=== PATIENT | female | born 1955 | race Caucasian/White ===

== ENCOUNTER 2023-11-26 18:01 | Emergency (ER) | payer MEDICARE, OTHER, SELFPAY ==
[2023-11-26 18:08] VITALS: BP 119/81
[2023-11-26 18:31] LABS: % Basophils 0.7 % (0-2); % Eosinophils 1.9 % (0-6); % Immature Granulocytes 0.3 % (0-0.5); % Lymphocytes 34.5 % (20.5-51.1); % Neutrophils 55.6 % (42.2-75.2); Absolute Basophils 0.1 10^3/uL (0-0.2); Absolute Eosinophils 0.1 10^3/uL (0-0.7); Absolute Lymphocytes 2.6 10^3/uL (1.2-3.4); Absolute Monocytes 0.5 10^3/uL (0.1-0.6); Absolute Neutrophils 4.2 10^3/uL (1.4-6.5); Hematocrit 41.5 % (37.0-47.0); Hemoglobin 15.1 g/dL (12.0-16.0); Mean Corp Hgb Conc. 36.4 g/dL (33.0-37.0); Mean Corpuscular Hgb 33.6 pg (27.0-31.0); Mean Corpuscular Volume 92.2 fL (81.0-99.0); Mean Platelet Volume 8.7 fL (7.4-10.4); Nucleated Red Blood Cells % 0 %; Platelet Count 275 10^3/uL (130-400); Red Cell Dist. Width 11.6 % (11.5-14.5); White Blood Cell Count 7.5 10^3/uL (4.8-10.8)
[2023-11-26 18:51] LABS: ALT (SGPT) 46 U/L (0-35); AST (SGOT) 37 U/L (14-36); Albumin 4.1 g/dl (3.5-5.0); Alkaline Phosphatase 63 U/L (38-126); Blood Urea Nitrogen 16 mg/dl (7-17); Calcium 9.6 mg/dl (8.4-10.2); Carbon Dioxide 32 mmol/L (22-30); Chloride 96 mmol/L (98-107); Glucose 112 mg/dl (70-99); Potassium 3.1 mmol/L (3.5-5.1); Sodium 137 mmol/L (135-145); Total Bilirubin 0.5 mg/dl (0.2-1.3); Total Protein 7.7 g/dl (6.3-8.2); eGFR > 60.00
--- NOTE | 2023-11-26 19:00 | ED.GENMED ---
History of Present Illness
General
Chief Complaint: Musculo-Skeletal Complaint
Source: patient
Exam Limitations: none
Time Seen by Provider: 11/26/23 18:45
Nursing documentation reviewed up to this point in time: agreed with
Travel History
Have you had any contact with someone who has COVID-19?: No
Do you have any symptoms of coronavirus? Fever > 100 degrees, chills, cough, shortness of breath, sore throat, loss of taste or smell, muscle aches, or headache?: No
History of Present Illness
History of Present Illness:
Patient presents to ED secondary to ongoing left leg pain over the past 4 days. Patient states that patient was given Zithromax by her primary care physician last week. After taking 1 tablet, but night, patient started to experience left shoulder,
left arm, left-sided neck, as well as left leg pain. Since then, left neck and shoulder pain have resolved. Denies direct trauma. Denies loss of sensation or weakness. Denies fever or chills. Of note, patient does have history of rheumatoid
arthritis and received scheduled Remicade infusion this afternoon.
Past History
Past History
ED Past Medical History: Asthma, Cancer (Skin CA), GERD, Psychiatric (Anxiety, Depression) and Other (Chronic neck/back pain, diverticulitis, migraines, pulmonary AVM, rheumatoid arthritis, PNA, C-diff, )
ED Past Surgical History: Appendectomy, Gynecological, Orthopedic (L4-L5 Laminectomy, Right Bunionectomy, L and R shoulder repair, L and R THR, Right knee surgery, Right hand surgery, ) and Other (Rhizotomy neck and back, Cataracts, Deviated septum,
Detached retina, ); Negative Cardiac
Social History
Tobacco: Former smoker
Alcohol: Occasional
Drug: None
Personal:
Living: with family
Employment: Employed
Family History
Family History: Hypertension
Review of Systems
Review of Systems
Allergies reviewed?: Yes
All Other Systems: ROS reviewed and negative except as documented in HPI and ROS
Constitutional: Reports no symptoms; Denies fever or chills
Musculoskeletal: Reports other (Arm and leg pain)
Skin: Reports no symptoms
Neurological: Reports no symptoms; Denies weakness or numbness
Phy Exam
Physical Exam
Physical Exam:
Physical Exam
General: no apparent distress, not acutely ill. afebrile
Head: nc/at. eomi
Neck: supple. normal range of motion
Abdomen: normal bowel sounds. not tender.
Neuro: alert and oriented. no focal neurological deficits. normal speech.
Skin: no rash
Psychiatric: well kept. interactive and cooperative
Extremities: no edema. no calf tenderness. normal range of motion
Course
Orders/Labs/Results
Orders:
Orders
11/26/23 18:12
CR Femur - Left Min 2 Vw Urgent
Comment:
Reason For Exam: pain
CR Hip - LT w/wo Pel 2-3 Vw* Urgent
Comment:
Reason For Exam: pain
Include a pelvis x-ray?: Yes
CR Knee - Left 4 Or More View* Urgent
Comment:
Reason For Exam: pain
CR Lumbar Spine 2 Or 3 Views Urgent
Reason For Exam: pain
11/26/23 18:19
C-Reactive Protein Urgent
Complete Blood Count/With Diff Urgent
Comprehensive Metabolic Panel Urgent
Abnormal Lab Results
11/26/23
18:19
MCH 33.6 H pg
(27.0-31.0)
Potassium 3.1 L mmol/L
(3.5-5.1)
Chloride 96 L mmol/L
(98-107)
Carbon Dioxide 32 H mmol/L
(22-30)
Glucose 112 H mg/dl
(70-99)
AST 37 H U/L
(14-36)
ALT 46 H U/L
(0-35)
C-Reactive Protein 27.40 H mg/L
(0.0-10.00)
11/26/23 18:19
11/26/23 18:19
Vital Signs
Initial and Last Documented VS:
Initial Vital Signs
Temp Pulse Resp BP Pulse Ox
98.3 F 82 18 119/81 96
11/26/23 18:08 11/26/23 18:08 11/26/23 18:08 11/26/23 18:08 11/26/23 18:08
Last Documented Vital Signs
Temp Pulse Resp BP Pulse Ox
98.3 F 82 18 119/81 96
11/26/23 18:08 11/26/23 18:08 11/26/23 18:08 11/26/23 18:08 11/26/23 18:08
MDM/Problems Addressed
MDM/Problems Addressed:
Patient with an unremarkable workup in ED, including blood work and x-rays. Patient feels comfortable going home at this time and will follow-up with her orthopedic surgeon as an outpatient.
*Critical Care Note
Total Time (30-74mins, 75-104mins- exclusive of procedures): Not Applicable
ED Attending Note
-
Portions of this chart may have been created with voice recognition software.� Occasional wrong word or��sound alike� substitutions may have occurred due to the inherent limitations of voice recognition software.
Discharge Plan
Departure
Patient Disposition: Home (Routine Discharge)
Date of Disposition: 11/26/23
Time of Disposition: 19:00
Patient with high blood pressure during this ER visit?: No
Discharge Problem:
Musculoskeletal pain
Instructions: Muscle and Bone Pain (DC)
Prescriptions:
No Action
alprazolam 1 MG tablet
1 - 2 mg PO PRN PRN (Reason: sleep/anxiety)
montelukast 10 MG tablet
10 mg PO QPM
fluoxetine 20 MG capsule
20 mg PO HS
docusate sodium 100 MG capsule
100 mg PO HS
sennosides [senna] 1 TABLET tablet
2 tab PO HS
pantoprazole [Protonix] 20 MG tablet,delayed release (DR/EC)
40 mg PO DAILY
Prolia 60 MG/ML syringe
60 mg SQ [id number]
hydrocodone-acetaminophen 10-325 mg Tablet
1 tab PO Q4H PRN (Reason: pain)
fluoxetine 10 mg Capsule
10 mg PO DAILY
potassium chloride 10 mEq Capsule, Extended Release
10 meq PO DAILY@1800
folic acid 1 mg Tablet
3 mg PO DAILY
famotidine 20 mg Tablet
20 mg PO HS
ondansetron 4 mg tablet,disintegrating
4 mg PO Q8H PRN (Reason: nausea and vomiting) Qty: 7 0RF
sucralfate [Carafate] 1 gram tablet
1 g PO ACHS Qty: 40 0RF
Rx Instructions:
30min to 1 hour before meals and HS
ciprofloxacin HCl [Cipro] 500 mg tablet
500 mg PO BID Qty: 10 0RF
Activity Restrictions/Additional Instructions:
As discussed, please follow-up with your primary care physician and/or orthopedic surgeon for further evaluation and treatment.
Interventions
Interventions:
*Risk Screen - Suicide Last Done: 11/26/23 18:08
*General Assessment Last Done: 11/26/23 18:08
*Neglect/Abuse Screening Last Done: 11/26/23 18:08
ED- Fall Risk Assessment Last Done: 11/26/23 19:20
*ED COVID-19 Vaccine History Last Done: 11/26/23 18:45
*Nursing Disposition Last Done: 11/26/23 19:20
ED-Musculoskeletal Assessment Last Done: 11/26/23 18:45
Discharge Date and Time
Discharge Date/Time: 11/26/23 19:21
== END 2023-11-26 19:21 | disposition home or self-care (01) ==
LOC: EMR 18:01
PROVIDERS: EMERGENCY PHYSICIAN Emergency Medicine; FAMILY PHYSICIAN Nurse Practitioner Family
DX: M79.18 Myalgia, other site (principal); J45.909 Unspecified asthma, uncomplicated; K21.9 Gastro-esophageal reflux disease without esophagitis; F41.9 Anxiety disorder, unspecified; F32.A Depression, unspecified; Q27.30 Arteriovenous malformation, site unspecified; M06.9 Rheumatoid arthritis, unspecified; Z82.49 Family history of ischemic heart disease and other diseases of the circulatory system; Z85.828 Personal history of other malignant neoplasm of skin; Z87.891 Personal history of nicotine dependence; Z90.49 Acquired absence of other specified parts of digestive tract
CPT/HCPCS: 99283; 72100; 73502; 73552; 73564; 80053; 85025; 86140

== ENCOUNTER → 2023-12-17 13:00 | Outpatient (REF) | payer MEDICARE, OTHER, SELFPAY ==
[2023-12-17 15:19] LABS: % Basophils 0.8 % (0-2); % Eosinophils 1.5 % (0-6); % Immature Granulocytes 0.3 % (0-0.5); % Lymphocytes 30.4 % (20.5-51.1); % Monocytes 11.5 % (1.7-9.3); % Neutrophils 55.5 % (42.2-75.2); Absolute Basophils 0.1 10^3/uL (0-0.2); Absolute Eosinophils 0.1 10^3/uL (0-0.7); Absolute Monocytes 0.8 10^3/uL (0.1-0.6); Absolute Neutrophils 3.6 10^3/uL (1.4-6.5); Hematocrit 41.2 % (37.0-47.0); Hemoglobin 14.4 g/dL (12.0-16.0); Mean Corpuscular Hgb 33.3 pg (27.0-31.0); Mean Corpuscular Volume 95.2 fL (81.0-99.0); Mean Platelet Volume 9.2 fL (7.4-10.4); Nucleated Red Blood Cells % 0 %; Platelet Count 226 10^3/uL (130-400); Red Blood Cell Count 4.33 10^6/uL (4.20-5.40); Red Cell Dist. Width 11.6 % (11.5-14.5); White Blood Cell Count 6.5 10^3/uL (4.8-10.8)
== END ==
LOC: HWLAB 13:00
PROVIDERS: ATTENDING PHYSICIAN Specialist
DX: Z01.812 Encounter for preprocedural laboratory examination (principal); K35.80 Unspecified acute appendicitis
CPT/HCPCS: 36415; 85025

== ENCOUNTER 2024-01-28 12:37 | Emergency (ER) | payer MEDICARE, OTHER, SELFPAY ==
[2024-01-28 12:42] VITALS: BP 132/86
--- NOTE | 2024-01-28 14:22 | ED.GENMED ---
History of Present Illness
General
Chief Complaint: Cold/Flu/URI Symptoms
Time Seen by Provider: 01/28/24 14:06
Travel History
Have you had any contact with someone who has COVID-19?: No
Do you have any symptoms of coronavirus? Fever > 100 degrees, chills, cough, shortness of breath, sore throat, loss of taste or smell, muscle aches, or headache?: No
History of Present Illness
History of Present Illness:
68-year-old female with history of rheumatoid arthritis on Remicade presents to the emergency department for evaluation of nasal congestion, coughing, chest tightness. She has had symptoms for the past 3 days. Tested positive for COVID-19 2 days
ago. She was prescribed Paxlovid by her primary care physician but her pharmacist advised her that there are interactions with her medications so she has not taken it. Denies any fevers today.
Past History
Past History
ED Past Medical History: Asthma, Cancer (Skin CA), GERD, Psychiatric (Anxiety, Depression) and Other (Chronic neck/back pain, diverticulitis, migraines, pulmonary AVM, rheumatoid arthritis, PNA, C-diff, )
ED Past Surgical History: Appendectomy, Gynecological, Orthopedic (L4-L5 Laminectomy, Right Bunionectomy, L and R shoulder repair, L and R THR, Right knee surgery, Right hand surgery, ) and Other (Rhizotomy neck and back, Cataracts, Deviated septum,
Detached retina, ); Negative Cardiac
Social History
Tobacco: Former smoker
Alcohol: Occasional
Drug: None
Personal:
Living: with family
Employment: Employed
Family History
Family History: Hypertension
Review of Systems
Review of Systems
Allergies reviewed?: Yes
All Other Systems: ROS reviewed and negative except as documented in HPI and ROS
Phy Exam
Physical Exam
Physical Exam:
GEN: Well appearing, NAD, WDWN
Eyes: PERRLA, EOMs intact, no scleral icterus
HENT: NCAT, oral mucosa moist
Lungs: CTAB, no wheezes, rales, rhonchi, normal chest wall excursion
Cardiac: RRR, no M/R/G, no peripheral edema. Radial pulses 2+ bilat
Neuro: AO x 3
MSK: No gross deformity or ecchymosis.
Skin: No rashes, petechiae. Normal color, no pallor or jaundice.
Psych: Calm, cooperative, proper hygiene
Course
Vital Signs
Initial and Last Documented VS:
Initial Vital Signs
Temp Pulse Resp BP Pulse Ox
99.7 F 91 18 132/86 96
01/28/24 12:42 01/28/24 12:42 01/28/24 12:42 01/28/24 12:42 01/28/24 12:42
Last Documented Vital Signs
Temp Pulse Resp BP Pulse Ox
99.7 F 91 18 132/86 96
01/28/24 12:42 01/28/24 12:42 01/28/24 12:42 01/28/24 12:42 01/28/24 12:42
MDM/Problems Addressed
MDM/Problems Addressed:
Patient is clinically well with clear lungs on exam. Certainly with her being on Remicade it is appropriate for her to take antivirals, no significant interactions with her chronic meds, there is a weak interaction with her fluoxetine however this
would not preclude use. Discussed supportive care and return parameters
*Critical Care Note
Total Time (30-74mins, 75-104mins- exclusive of procedures): Not Applicable
ED Attending Note
-
Portions of this chart may have been created with voice recognition software.� Occasional wrong word or��sound alike� substitutions may have occurred due to the inherent limitations of voice recognition software.
Discharge Plan
Departure
Patient Disposition: Home (Routine Discharge)
Date of Disposition: 01/28/24
Time of Disposition: 14:22
Patient with high blood pressure during this ER visit?: No
Discharge Problem:
COVID-19
Instructions: COVID-19 ED
Prescriptions:
No Action
alprazolam 1 MG tablet
1 - 2 mg PO PRN PRN (Reason: sleep/anxiety)
montelukast 10 MG tablet
10 mg PO QPM
fluoxetine 20 MG capsule
20 mg PO HS
docusate sodium 100 MG capsule
100 mg PO HS
sennosides [senna] 1 TABLET tablet
2 tab PO HS
pantoprazole [Protonix] 20 MG tablet,delayed release (DR/EC)
40 mg PO DAILY
Prolia 60 MG/ML syringe
60 mg SQ [id number]
hydrocodone-acetaminophen 10-325 mg Tablet
1 tab PO Q4H PRN (Reason: pain)
fluoxetine 10 mg Capsule
10 mg PO DAILY
potassium chloride 10 mEq Capsule, Extended Release
10 meq PO DAILY@1800
folic acid 1 mg Tablet
3 mg PO DAILY
famotidine 20 mg Tablet
20 mg PO HS
ondansetron 4 mg tablet,disintegrating
4 mg PO Q8H PRN (Reason: nausea and vomiting) Qty: 7 0RF
sucralfate [Carafate] 1 gram tablet
1 g PO ACHS Qty: 40 0RF
Rx Instructions:
30min to 1 hour before meals and HS
ciprofloxacin HCl [Cipro] 500 mg tablet
500 mg PO BID Qty: 10 0RF
Referrals:
UNKNOWN - PT DOES,NOT KNOW [Family Provider] -
Activity Restrictions/Additional Instructions:
There are no SIGNIFICANT interactions with your prescriptions and Paxlovid. However, it is not required that you take Paxlovid given that you currently have mild symptoms.
Interventions
Interventions:
*Risk Screen - Suicide Last Done: 01/28/24 12:42
*General Assessment Last Done: 01/28/24 12:42
*Neglect/Abuse Screening Last Done: 01/28/24 12:42
Discharge Date and Time
Print Language: ICELANDIC
== END 2024-01-28 15:09 | disposition home or self-care (01) ==
LOC: EMR 12:37
PROVIDERS: EMERGENCY PHYSICIAN Emergency Medicine
DX: U07.1 COVID-19 (principal); Z87.891 Personal history of nicotine dependence
CPT/HCPCS: 99281

== ENCOUNTER → 2024-02-05 14:50 | Outpatient (REF) | payer MEDICARE, OTHER, SELFPAY | LOC: WDC 14:50 | PROVIDERS: ATTENDING PHYSICIAN Nurse Practitioner Women's Health | DX: N64.4 Mastodynia (principal) | CPT/HCPCS: 76642; 77062; 77066 ==

== ENCOUNTER 2024-02-11 17:19 | Emergency (ER) | payer MEDICARE, OTHER, SELFPAY ==
[2024-02-11 17:22] VITALS: BP 134/82
[2024-02-11 20:30] VITALS: BP 136/74
--- NOTE | 2024-02-11 22:36 | ED.GENMED ---
History of Present Illness
General
Chief Complaint: Head Injury
Source: patient and spouse
Exam Limitations: none
Time Seen by Provider: 02/11/24 21:16
Nursing documentation reviewed up to this point in time: agreed with
Travel History
Have you had any contact with someone who has COVID-19?: No
Do you have any symptoms of coronavirus? Fever > 100 degrees, chills, cough, shortness of breath, sore throat, loss of taste or smell, muscle aches, or headache?: No
History of Present Illness
History of Present Illness:
68-year-old female with past medical history of chronic back pain, anxiety depression presenting to the emergency department today with concerns of ongoing headache and a fall yesterday where she hit the back of her head and also hit her right hand
and her left riojas. Additionally was getting an infusion for rheumatoid arthritis earlier today had a mild reaction as well as worsening headache at that point as well was told to go to the ER. Denies any specific chest pain nausea vomiting fevers
numbness weakness.
Past History
Past History
ED Past Medical History: Asthma, Cancer (Skin CA), GERD, Psychiatric (Anxiety, Depression) and Other (Chronic neck/back pain, diverticulitis, migraines, pulmonary AVM, rheumatoid arthritis, PNA, C-diff, )
ED Past Surgical History: Appendectomy, Gynecological, Orthopedic (L4-L5 Laminectomy, Right Bunionectomy, L and R shoulder repair, L and R THR, Right knee surgery, Right hand surgery, ) and Other (Rhizotomy neck and back, Cataracts, Deviated septum,
Detached retina, ); Negative Cardiac
Social History
Tobacco: Former smoker
Alcohol: Occasional
Drug: None
Personal:
Living: with family
Employment: Employed
Family History
Family History: Hypertension
Review of Systems
Review of Systems
Allergies reviewed?: Yes
All Other Systems: ROS reviewed and negative except as documented in HPI and ROS
Phy Exam
Physical Exam
Physical Exam:
GENERAL: Alert , in no apparent distress
EYE: pupils equal and reactive
NECK: Supple, no significant adenopathy.
ENT: o/p clr, mmm.
CARDIAC: Regular rate and rhythm .
LUNGS: Clear breath sounds bilaterally, no acute respiratory distress, no wheezes/rales/rhonchi
ABDOMEN: Soft, without focal tenderness, no r/g, no cvat
NEUROLOGICAL: Alert and oriented, no focal neuro deficits 5-5 upper and lower extremity strength normal sensation when palpating bilaterally normal finger-nose intervention no pronator drift
SKIN: Skin tear to the left riojas warm and dry, skin intact.
MUSCULOSKELETAL: Pain throughout the right hand but no specific focal bony tenderness no edema, well perfused.
PSYCH: Normal and appropriate interaction.
Course
Orders/Labs/Results
Orders:
Orders
02/11/24 19:[address] [CT Head W/o Iv Contrast] Urgent
Comment:
Reason For Exam: FALL STRIKING HEAD
02/11/24 21:32
CR Hand - Right Min 3 Views Urgent
Comment: 3RD AND 4TH DIGITS
Reason For Exam: pain
Vital Signs
Initial and Last Documented VS:
Initial Vital Signs
Temp Pulse Resp BP Pulse Ox
98.2 F 97 16 134/82 98
02/11/24 17:22 02/11/24 17:22 02/11/24 17:22 02/11/24 17:22 02/11/24 17:22
Last Documented Vital Signs
Temp Pulse Resp BP Pulse Ox
98.2 F 90 18 136/74 98
02/11/24 17:22 02/11/24 20:30 02/11/24 20:30 02/11/24 20:30 02/11/24 20:30
MDM/Problems Addressed
MDM/Problems Addressed:
68-year-old female presenting to the emergency department today with concerns of ongoing headache after falling and hitting back of her head on arrival here vital signs are normal patient no distress normal neurologic evaluation no significant
midline neck pain head CT performed that emergent findings x-ray of the hand also performed without emergent findings no signs of fracture patient with likely sprain. Patient did have a skin tear to left riojas that was repaired with a Steri-Strip.
Otherwise patient stable for outpatient management return precautions given.
*Critical Care Note
Total Time (30-74mins, 75-104mins- exclusive of procedures): Not Applicable
ED Attending Note
-
Portions of this chart may have been created with voice recognition software.� Occasional wrong word or��sound alike� substitutions may have occurred due to the inherent limitations of voice recognition software.
Discharge Plan
Departure
Patient Disposition: Home (Routine Discharge)
Date of Disposition: 02/11/24
Time of Disposition: 22:39
Patient with high blood pressure during this ER visit?: No
Condition: Good
Covid-19: Not Applicable
Discharge Problem:
Headache, Hand sprain, Noninfected skin tear of left leg
Instructions: Head Injury in Adults (DC)
Prescriptions:
No Action
alprazolam 1 MG tablet
1 - 2 mg PO PRN PRN (Reason: sleep/anxiety)
montelukast 10 MG tablet
10 mg PO QPM
fluoxetine 20 MG capsule
20 mg PO HS
docusate sodium 100 MG capsule
100 mg PO HS
sennosides [senna] 1 TABLET tablet
2 tab PO HS
pantoprazole [Protonix] 20 MG tablet,delayed release (DR/EC)
40 mg PO DAILY
Prolia 60 MG/ML syringe
60 mg SQ [id number]
hydrocodone-acetaminophen 10-325 mg Tablet
1 tab PO Q4H PRN (Reason: pain)
fluoxetine 10 mg Capsule
10 mg PO DAILY
potassium chloride 10 mEq Capsule, Extended Release
10 meq PO DAILY@1800
folic acid 1 mg Tablet
3 mg PO DAILY
famotidine 20 mg Tablet
20 mg PO HS
ondansetron 4 mg tablet,disintegrating
4 mg PO Q8H PRN (Reason: nausea and vomiting) Qty: 7 0RF
sucralfate [Carafate] 1 gram tablet
1 g PO ACHS Qty: 40 0RF
Rx Instructions:
30min to 1 hour before meals and HS
ciprofloxacin HCl [Cipro] 500 mg tablet
500 mg PO BID Qty: 10 0RF
Referrals:
Sharona Patel CRNP [Family Provider] -
Activity Restrictions/Additional Instructions:
You came to the emergency department today with concerns of headache you had a normal CT scan normal x-ray of the right hand. Please keep the skin tear clean covered of the left leg. Return to the emergency department for any worsening, new or
concerning symptoms.
Interventions
Interventions:
*Risk Screen - Suicide Last Done: 02/11/24 20:45
*Neglect/Abuse Screening Last Done: 02/11/24 20:45
*ED COVID-19 Vaccine History Last Done: 02/11/24 17:22
ED- Neurological Assessment Last Done: 02/11/24 19:57
ED-Skin Assessment Last Done: 02/11/24 19:57
Discharge Date and Time
Print Language: TAJIK
== END 2024-02-11 22:45 | disposition home or self-care (01) ==
LOC: EMR 17:19
PROVIDERS: EMERGENCY PHYSICIAN Student in an Organized Health Care Education/Training Program; FAMILY PHYSICIAN Nurse Practitioner Family
DX: R51.9 Headache, unspecified (principal); S63.91XA Sprain of unspecified part of right wrist and hand, initial encounter; S81.812A Laceration without foreign body, left lower leg, initial encounter; W19.XXXA Unspecified fall, initial encounter; F41.9 Anxiety disorder, unspecified; F32.A Depression, unspecified; Z87.891 Personal history of nicotine dependence
CPT/HCPCS: 99284; 70450; 73130

== ENCOUNTER → 2024-02-15 13:43 | Outpatient (REF) | payer MEDICARE, OTHER, SELFPAY ==
[2024-02-15 15:34] LABS: % Eosinophils 2.2 % (0-6); % Immature Granulocytes 0.4 % (0-0.5); % Lymphocytes 30.9 % (20.5-51.1); % Monocytes 10.5 % (1.7-9.3); Absolute Basophils 0.1 10^3/uL (0-0.2); Absolute Eosinophils 0.1 10^3/uL (0-0.7); Absolute Lymphocytes 1.5 10^3/uL (1.2-3.4); Absolute Monocytes 0.5 10^3/uL (0.1-0.6); Absolute Neutrophils 2.7 10^3/uL (1.4-6.5); Hematocrit 41.2 % (37.0-47.0); Hemoglobin 14.1 g/dL (12.0-16.0); Mean Corp Hgb Conc. 34.2 g/dL (33.0-37.0); Mean Corpuscular Hgb 31.8 pg (27.0-31.0); Mean Platelet Volume 8.8 fL (7.4-10.4); Nucleated Red Blood Cells % 0 %; Platelet Count 281 10^3/uL (130-400); Red Blood Cell Count 4.43 10^6/uL (4.20-5.40); Red Cell Dist. Width 12.2 % (11.5-14.5)
[2024-02-15 15:56] LABS: ALT (SGPT) 41 U/L (0-35); AST (SGOT) 39 U/L (14-36); Albumin 4.4 g/dl (3.5-5.0); Alkaline Phosphatase 67 U/L (38-126); Blood Urea Nitrogen 12 mg/dl (7-17); Calcium 9.6 mg/dl (8.4-10.2); Carbon Dioxide 31 mmol/L (22-30); Chloride 95 mmol/L (98-107); Glucose 90 mg/dl (70-99); Potassium 3.4 mmol/L (3.5-5.1); Sodium 136 mmol/L (135-145); Total Bilirubin 0.5 mg/dl (0.2-1.3); Total Protein 7.9 g/dl (6.3-8.2); eGFR > 60.00
[2024-02-15 16:00] LABS: Erythrocyte Sed Rate 20 mm/hour (0-20)
[2024-02-15 16:01] LABS: Uric Acid 8.7 mg/dl (2.5-6.2)
[2024-02-15 16:08] LABS: Vitamin D, 25-OH*** 92.3 ng/mL (30-80)
[2024-02-15 16:21] LABS: Hepatitis B Surface Antigen Negative (Negative)
[2024-02-15 16:39] LABS: Hepatitis B Core Ab, Total Negative (Negative); Hepatitis C Antibody Negative (Negative)
[2024-02-17 17:05] LABS: HLA-B27 Negative (Negative)
== END ==
LOC: HWLAB 13:43
PROVIDERS: ATTENDING PHYSICIAN Internal Medicine Rheumatology; FAMILY PHYSICIAN Family Medicine
DX: D64.9 Anemia, unspecified (principal); M06.00 Rheumatoid arthritis without rheumatoid factor, unspecified site; M15.4 Erosive (osteo)arthritis; E55.9 Vitamin D deficiency, unspecified; E79.0 Hyperuricemia without signs of inflammatory arthritis and tophaceous disease; R94.5 Abnormal results of liver function studies
CPT/HCPCS: 36415; 80053; 82306; 84550; 85025; 85652; 86140; 86704; 86803; 86812; 87340

== ENCOUNTER → 2024-02-27 11:37 | Outpatient (REF) | payer MEDICARE, OTHER, SELFPAY ==
[2024-03-01 02:50] LABS: Quantiferon Mitogen minus NIL 9.85 IU/mL; Quantiferon NIL 0.02 IU/mL; Quantiferon TB Gold Plus Negative (Negative)
== END ==
LOC: REG 11:37
PROVIDERS: ATTENDING PHYSICIAN Physician Assistant; FAMILY PHYSICIAN Nurse Practitioner Family
DX: D64.9 Anemia, unspecified (principal); M06.00 Rheumatoid arthritis without rheumatoid factor, unspecified site; M15.4 Erosive (osteo)arthritis
CPT/HCPCS: 36415; 86480

== ENCOUNTER → 2024-03-26 12:08 | Outpatient (REF) | payer MEDICARE, OTHER, SELFPAY | LOC: HWRAD 12:08 | PROVIDERS: ATTENDING PHYSICIAN Internal Medicine Rheumatology; FAMILY PHYSICIAN Family Medicine | DX: M81.0 Age-related osteoporosis without current pathological fracture (principal) | CPT/HCPCS: 77080 ==

== ENCOUNTER → 2024-05-22 16:38 | Outpatient (REF) | payer MEDICARE, OTHER, SELFPAY ==
[2024-05-22 17:19] LABS: % Basophils 0.8 % (0-2); % Eosinophils 1.9 % (0-6); % Immature Granulocytes 0.2 % (0-0.5); % Lymphocytes 34.4 % (20.5-51.1); % Monocytes 11.3 % (1.7-9.3); % Neutrophils 51.4 % (42.2-75.2); Absolute Eosinophils 0.1 10^3/uL (0-0.7); Absolute Lymphocytes 1.8 10^3/uL (1.2-3.4); Absolute Monocytes 0.6 10^3/uL (0.1-0.6); Absolute Neutrophils 2.7 10^3/uL (1.4-6.5); Hematocrit 41.2 % (37.0-47.0); Hemoglobin 13.9 g/dL (12.0-16.0); Mean Corp Hgb Conc. 33.7 g/dL (33.0-37.0); Mean Corpuscular Hgb 31.4 pg (27.0-31.0); Mean Platelet Volume 8.8 fL (7.4-10.4); Nucleated Red Blood Cells % 0 %; Platelet Count 237 10^3/uL (130-400); Red Blood Cell Count 4.43 10^6/uL (4.20-5.40); Red Cell Dist. Width 12.7 % (11.5-14.5); White Blood Cell Count 5.2 10^3/uL (4.8-10.8)
[2024-05-22 17:35] LABS: Iron 109 ug/dl (37-170)
[2024-05-22 18:25] LABS: Vitamin B12 611 pg/ml (239-931)
[2024-05-24 22:30] LABS: EBV-EA (D) Ab IgG 60.1 U/mL (0.0-10.9); EBV-NA IgG 47.3 U/mL (0.0-21.9); EBV-VCA IgM Antibodies <10.0 U/mL (0.0-43.9)
== END ==
LOC: CLAB 16:38
PROVIDERS: ATTENDING PHYSICIAN Nurse Practitioner Family
DX: R53.83 Other fatigue (principal); U07.1 COVID-19; D53.9 Nutritional anemia, unspecified
CPT/HCPCS: 82607; 82728; 83540; 85025; 86663; 86664; 86665

== ENCOUNTER → 2024-08-04 13:14 | Outpatient (REF) | payer MEDICARE, OTHER, SELFPAY ==
[2024-08-04 15:57] LABS: % Basophils 0.9 % (0-2); % Eosinophils 1.9 % (0-6); % Immature Granulocytes 0.4 % (0-0.5); % Lymphocytes 42.9 % (20.5-51.1); % Monocytes 10.3 % (1.7-9.3); % Neutrophils 43.6 % (42.2-75.2); Absolute Basophils 0.1 10^3/uL (0-0.2); Absolute Eosinophils 0.1 10^3/uL (0-0.7); Absolute Lymphocytes 2.5 10^3/uL (1.2-3.4); Absolute Monocytes 0.6 10^3/uL (0.1-0.6); Absolute Neutrophils 2.5 10^3/uL (1.4-6.5); Mean Corpuscular Hgb 31.6 pg (27.0-31.0); Mean Corpuscular Volume 90.3 fL (81.0-99.0); Mean Platelet Volume 9.3 fL (7.4-10.4); Nucleated Red Blood Cells % 0 %; Platelet Count 229 10^3/uL (130-400); Red Blood Cell Count 4.43 10^6/uL (4.20-5.40); Red Cell Dist. Width 11.6 % (11.5-14.5); White Blood Cell Count 5.7 10^3/uL (4.8-10.8)
[2024-08-04 16:06] LABS: ALT (SGPT) 45 U/L (0-35); AST (SGOT) 36 U/L (14-36); Albumin 4.6 g/dl (3.5-5.0); Alkaline Phosphatase 67 U/L (38-126); Blood Urea Nitrogen 22 mg/dl (7-17); Calcium 9.8 mg/dl (8.4-10.2); Carbon Dioxide 28 mmol/L (22-30); Chloride 95 mmol/L (98-107); Glucose 101 mg/dl (70-99); Potassium 3.3 mmol/L (3.5-5.1); Sodium 138 mmol/L (135-145); Total Bilirubin 0.5 mg/dl (0.2-1.3); Total Protein 7.6 g/dl (6.3-8.2); eGFR > 60.00
== END ==
LOC: HWLAB 13:14
PROVIDERS: ATTENDING PHYSICIAN Internal Medicine Rheumatology; FAMILY PHYSICIAN Nurse Practitioner Family
DX: E55.9 Vitamin D deficiency, unspecified (principal); L40.50 Arthropathic psoriasis, unspecified; M06.00 Rheumatoid arthritis without rheumatoid factor, unspecified site; M15.4 Erosive (osteo)arthritis; M81.0 Age-related osteoporosis without current pathological fracture; Z79.899 Other long term (current) drug therapy
CPT/HCPCS: 36415; 80053; 82306; 85025; 86140

== ENCOUNTER → 2024-08-25 14:51 | Outpatient (REF) | payer MEDICARE, OTHER, SELFPAY | LOC: HWRAD 14:51 | PROVIDERS: ATTENDING PHYSICIAN Nurse Practitioner Family | DX: R19.7 Diarrhea, unspecified (principal) | CPT/HCPCS: 74176 ==

== ENCOUNTER → 2024-09-09 13:35 | Outpatient (REF) | payer MEDICARE, OTHER, SELFPAY ==
[2024-09-09 16:59] LABS: Erythrocyte Sed Rate 13 mm/hour (0-20)
[2024-09-09 17:14] LABS: ALT (SGPT) 41 U/L (0-35); AST (SGOT) 35 U/L (14-36); Albumin 4.3 g/dl (3.5-5.0); Alkaline Phosphatase 83 U/L (38-126); Blood Urea Nitrogen 23 mg/dl (7-17); Calcium 9.5 mg/dl (8.4-10.2); Carbon Dioxide 34 mmol/L (22-30); Chloride 95 mmol/L (98-107); Glucose 77 mg/dl (70-99); Potassium 3.6 mmol/L (3.5-5.1); Sodium 139 mmol/L (135-145); Total Bilirubin 0.3 mg/dl (0.2-1.3); Total Protein 7.5 g/dl (6.3-8.2); eGFR > 60.00
[2024-09-09 17:47] LABS: TSH < 0.02 uIU/ml (0.47-4.68)
[2024-09-10 14:18] LABS: tTG IgG Antibody 15.6 EU/ml (0-19)
[2024-09-10 23:40] LABS: IgA 221 mg/dl (70-400)
== END ==
LOC: HWLAB 13:35
PROVIDERS: ATTENDING PHYSICIAN Family Medicine
DX: R19.8 Other specified symptoms and signs involving the digestive system and abdomen (principal)
CPT/HCPCS: 36415; 80053; 82784; 83516; 84443; 85652; 86140; 86231

== ENCOUNTER → 2024-09-12 13:45 | Outpatient (REF) | payer MEDICARE, OTHER, SELFPAY | LOC: HWRAD 13:45 | PROVIDERS: ATTENDING PHYSICIAN Family Medicine | DX: R10.9 Unspecified abdominal pain (principal) | CPT/HCPCS: 74177; Q9967 ==

== ENCOUNTER → 2024-10-08 14:22 | Outpatient (REF) | payer MEDICARE, OTHER, SELFPAY ==
[2024-10-08 16:07] LABS: Amylase 64 U/L (30-110); Lipase 110 U/L (23-300)
[2024-10-08 16:20] LABS: Erythrocyte Sed Rate 15 mm/hour (0-20)
[2024-10-08 16:41] LABS: TSH < 0.02 uIU/ml (0.47-4.68)
== END ==
LOC: RAD 14:22
PROVIDERS: Family Medicine; ATTENDING PHYSICIAN Physician Assistant Medical; FAMILY PHYSICIAN Nurse Practitioner Family
DX: S29.9XXA Unspecified injury of thorax, initial encounter (principal); R19.8 Other specified symptoms and signs involving the digestive system and abdomen; R10.10 Upper abdominal pain, unspecified
CPT/HCPCS: 36415; 71101; 82150; 83690; 84443; 85652; 86140

== ENCOUNTER → 2024-10-27 14:04 | Outpatient (REF) | payer MEDICARE, OTHER, SELFPAY | LOC: HWRAD 14:04 | PROVIDERS: ATTENDING PHYSICIAN Nurse Practitioner Family | DX: R05.1 Acute cough (principal) | CPT/HCPCS: 71046 ==

== ENCOUNTER → 2024-11-10 08:15 | Outpatient (REF) | payer MEDICARE, OTHER, SELFPAY | LOC: RAD 08:15 | PROVIDERS: FAMILY PHYSICIAN Nurse Practitioner Family | DX: R10.9 Unspecified abdominal pain (principal) | CPT/HCPCS: 78264; A9541 ==

== ENCOUNTER → 2024-11-13 11:42 | Outpatient (REF) | payer MEDICARE, OTHER, SELFPAY | LOC: HWRAD 11:42 | PROVIDERS: ATTENDING PHYSICIAN Family Medicine; FAMILY PHYSICIAN Nurse Practitioner Family | DX: R10.10 Upper abdominal pain, unspecified (principal) | CPT/HCPCS: 76700 ==

== ENCOUNTER → 2024-12-02 08:48 | Outpatient (REF) | payer MEDICARE, OTHER, SELFPAY ==
[2024-12-02 11:18] LABS: % Basophils 1.1 % (0-2); % Eosinophils 1.5 % (0-6); % Immature Granulocytes 0.4 % (0-0.5); % Lymphocytes 47.8 % (20.5-51.1); % Monocytes 11.2 % (1.7-9.3); Absolute Basophils 0.1 10^3/uL (0-0.2); Absolute Eosinophils 0.1 10^3/uL (0-0.7); Absolute Lymphocytes 2.3 10^3/uL (1.2-3.4); Absolute Monocytes 0.5 10^3/uL (0.1-0.6); Absolute Neutrophils 1.8 10^3/uL (1.4-6.5); Hematocrit 39.6 % (37.0-47.0); Hemoglobin 13.5 g/dL (12.0-16.0); Mean Corp Hgb Conc. 34.1 g/dL (33.0-37.0); Mean Corpuscular Hgb 32.3 pg (27.0-31.0); Mean Corpuscular Volume 94.7 fL (81.0-99.0); Mean Platelet Volume 8.9 fL (7.4-10.4); Nucleated Red Blood Cells % 0 %; Platelet Count 265 10^3/uL (130-400); Red Blood Cell Count 4.18 10^6/uL (4.20-5.40); Red Cell Dist. Width 12.9 % (11.5-14.5); White Blood Cell Count 4.7 10^3/uL (4.8-10.8)
[2024-12-02 11:22] LABS: ALT (SGPT) 33 U/L (0-35); AST (SGOT) 30 U/L (14-36); Albumin 4.8 g/dl (3.5-5.0); Alkaline Phosphatase 70 U/L (38-126); Calcium 9.1 mg/dl (8.4-10.2); Carbon Dioxide 34 mmol/L (22-30); Chloride 96 mmol/L (98-107); GGTP 150 U/L (12-43); Glucose 97 mg/dl (70-99); HDL Cholesterol 57 mg/dl; Iron 113 ug/dl (37-170); Potassium 3.3 mmol/L (3.5-5.1); Sodium 141 mmol/L (135-145); Total Bilirubin 0.6 mg/dl (0.2-1.3); Total Protein 8.3 g/dl (6.3-8.2); Triglyceride 252 mg/dl (10-149); Very Low Density Lipoprotein 50 mg/dl (0-30); eGFR > 60.00
[2024-12-02 11:23] LABS: INR 0.96; PT 13.1 Sec (11.4-14.6)
[2024-12-02 11:31] LABS: Percent Saturation 38 % (20-50); Total Iron Binding Capacity 296 ug/dl (265-497)
[2024-12-02 11:38] LABS: Blood Urea Nitrogen 15 mg/dl (7-17)
[2024-12-02 11:47] LABS: Free T3 3.34 pg/ml (2.77-5.27); Free T4 0.99 ng/dl (0.78-2.19)
[2024-12-02 11:47] LABS: Glycohemoglobin (HgbA1c) 5.3 % (4.0-5.6)
[2024-12-02 11:55] LABS: Hepatitis B Surface Antigen Negative (Negative)
[2024-12-02 11:58] LABS: Hepatitis A IgM Antibody Negative (Negative); Hepatitis B Core Ab, IgM Negative (Negative)
[2024-12-02 12:01] LABS: TSH 0.11 uIU/ml (0.47-4.68)
[2024-12-02 12:04] LABS: LDL Cholesterol, Calculated 98 mg/dl; Total Cholesterol 205 mg/dl (50-199)
[2024-12-02 12:12] LABS: Hepatitis A Antibody, Total Negative (Negative); Hepatitis B Core Ab, Total Negative (Negative); Hepatitis B Surface Antibody Negative; Hepatitis C Antibody Negative (Negative)
[2024-12-02 16:14] LABS: IgA 227 mg/dl (70-400); IgG 1433 mg/dl (700-1600); IgM 109 mg/dl (40-230)
[2024-12-04 00:41] LABS: Ceruloplasmin 27 mg/dL (16-45)
[2024-12-04 05:17] LABS: F-Actin Antibody IgG 5 Units (0-19); Mitochondrial M2 Ab, IgG 4.3 Units (0.0-24.9)
[2024-12-04 20:50] LABS: LKM-1 Ab (IgG) 0.6 U (0.0-24.9); Soluble Liver Antigen Ab 0.9 U (0.0-24.9)
== END ==
LOC: RAD 08:48
PROVIDERS: ATTENDING PHYSICIAN Family Medicine; FAMILY PHYSICIAN Family Medicine; REFERRING PHYSICIAN Internal Medicine Rheumatology
DX: R93.89 Abnormal findings on diagnostic imaging of other specified body structures (principal); R79.89 Other specified abnormal findings of blood chemistry; D64.9 Anemia, unspecified; E55.9 Vitamin D deficiency, unspecified; E79.0 Hyperuricemia without signs of inflammatory arthritis and tophaceous disease; M06.00 Rheumatoid arthritis without rheumatoid factor, unspecified site; M15.4 Erosive (osteo)arthritis; M17.12 Unilateral primary osteoarthritis, left knee; M25.562 Pain in left knee; M47.819 Spondylosis without myelopathy or radiculopathy, site unspecified; M81.0 Age-related osteoporosis without current pathological fracture; R94.5 Abnormal results of liver function studies; Z13.820 Encounter for screening for osteoporosis; Z79.899 Other long term (current) drug therapy
CPT/HCPCS: 74177; 80053; 80061; 82103; 82104; 82390; 82728; 82784; 82977; 83036; 83516; 83540; 83550; 84439; 84443; 84481; 85025; 85610; 86015; 86039; 86140; 86364; 86376; 86381; 86704; 86705; 86706; 86708; 86709; 86803; 87340; Q9967

== ENCOUNTER → 2024-12-23 15:07 | Outpatient (REF) | payer MEDICARE, OTHER, SELFPAY | LOC: HWRAD 15:07 | PROVIDERS: ATTENDING PHYSICIAN Internal Medicine Rheumatology | DX: M06.00 Rheumatoid arthritis without rheumatoid factor, unspecified site (principal); M15.4 Erosive (osteo)arthritis | CPT/HCPCS: 73130 ==

== ENCOUNTER → 2025-02-06 12:58 | Outpatient (REF) | payer MEDICARE, OTHER, SELFPAY | LOC: WOUND 12:58 | PROVIDERS: ATTENDING PHYSICIAN Surgery; FAMILY PHYSICIAN Family Medicine | DX: T81.31XA Disruption of external operation (surgical) wound, not elsewhere classified, initial encounter (principal); L97.222 Non-pressure chronic ulcer of left calf with fat layer exposed; M06.00 Rheumatoid arthritis without rheumatoid factor, unspecified site; M06.9 Rheumatoid arthritis, unspecified; Z98.890 Other specified postprocedural states; Z85.828 Personal history of other malignant neoplasm of skin; Y83.8 Other surgical procedures as the cause of abnormal reaction of the patient, or of later complication, without mention of misadventure at the time of the procedure | CPT/HCPCS: 11042; 99203 ==

== ENCOUNTER 2025-02-06 13:54 | Emergency (ER) | payer MEDICARE, OTHER, SELFPAY ==
[2025-02-06 14:00] VITALS: BP 149/85
--- NOTE | 2025-02-06 14:53 | ED.GENMED ---
History of Present Illness
General
Chief Complaint: Back Pain
Time Seen by Provider: 02/06/25 14:41
History of Present Illness
History of Present Illness:
Patient is a 69-year-old female with past medical history of chronic bronchitis, chronic back and neck pain with prior history of spinal surgeries with L4-L5 lumbar laminectomy in 1998 and , diverticulosis, GERD, cataracts, history of knee
replacements, and history of recent Mohs surgical skin cancer removal of the left lower extremity 1 month ago, here today for evaluation of approximately 1 week of progressively worsening lower back pain. No trauma. No falls or injuries. Pain is
along the entire low back but worse along the left side. There is no radiation of pain into the lower extremities. No numbness or tingling. No focal weakness. No incontinence. No urinary symptoms. No fevers or vomiting. No abdominal pain.
Symptoms are worse with movement and improved with rest. She has been taking hydrocodone as well as Advil without improvement. Symptoms are persistent.
Past History
Past History
ED Past Medical History: Asthma, Cancer (Skin CA), GERD, Psychiatric (Anxiety, Depression) and Other (Chronic neck/back pain, diverticulitis, migraines, pulmonary AVM, rheumatoid arthritis, PNA, C-diff, )
ED Past Surgical History: Appendectomy, Gynecological, Orthopedic (L4-L5 Laminectomy, Right Bunionectomy, L and R shoulder repair, L and R THR, Right knee surgery, Right hand surgery, ) and Other (Rhizotomy neck and back, Cataracts, Deviated septum,
Detached retina, ); Negative Cardiac
Social History
Tobacco: Former smoker
Alcohol: Occasional
Drug: None
Personal:
Living: with family
Employment: Employed
Family History
Family History: Hypertension
Review of Systems
Review of Systems
All Other Systems: ROS reviewed and negative except as documented in HPI and ROS
Phy Exam
Physical Exam
Physical Exam:
GENERAL: Alert , in no apparent distress
EYE: non-injected, symmetric
NECK: Supple
ENT: o/p clr, mmm.
CARDIAC: Regular rate and rhythm .
LUNGS: Clear breath sounds bilaterally, no acute respiratory distress, no wheezes/rales/rhonchi
ABDOMEN: Soft, without focal tenderness, no r/g, no cvat
NEUROLOGICAL: Alert and oriented, no focal neuro deficits
SKIN: Warm and dry, skin intact.
MUSCULOSKELETAL: No edema, well perfused. Moderate amount of tenderness to palpation along the bilateral lumbar paraspinal regions, no midline tenderness, no deformities, no skin changes or rashes, there is full strength and sensation/motor in the
lower extremities, no deficits
PSYCH: Normal and appropriate interaction.
Course
Orders/Labs/Results
Orders:
Orders
02/06/25 14:05
CR Lumbar Spine Comp Min 4 Vw* Urgent
Comment:
Reason For Exam: pain
02/06/25 14:52
Ketorolac [Toradol] 15 mg IV NOW STA
Lidocaine [Lidocaine 4% Patch] 1 patch TOPICAL ONCE ONE
Apply Lidocaine patch(s) to:: lower back
Morphine Sulfate 2 mg IV NOW STA
02/06/25 15:24
Ketorolac [Toradol] 15 mg IV NOW STA
Morphine Sulfate 2 mg IV NOW STA
Vital Signs
Initial and Last Documented VS:
Initial Vital Signs
Temp Pulse Resp BP Pulse Ox
97.8 F 73 16 149/85 95
02/06/25 14:00 02/06/25 14:00 02/06/25 14:00 02/06/25 14:00 02/06/25 14:00
Last Documented Vital Signs
Temp Pulse Resp BP Pulse Ox
97.8 F 73 16 149/85 95
02/06/25 14:00 02/06/25 14:00 02/06/25 14:00 02/06/25 14:00 02/06/25 14:00
MDM/Problems Addressed
Differential Diagnosis Includes:
Patient is a 69-year-old female with past medical history of chronic bronchitis, chronic back and neck pain with prior history of spinal surgeries with L4-L5 lumbar laminectomy in 1998 and , diverticulosis, GERD, cataracts, history of knee
replacements, and history of recent Mohs surgical skin cancer removal of the left lower extremity 1 month ago, here today for evaluation of approximately 1 week of progressively worsening lower back pain. Overall, patient appears very well. Vital
signs remarkable for an elevated blood pressure. Physical examination described above. The patient is neurologically intact without acute focal deficits appreciated. There are no red flag alert signs or symptoms to suggest spinal cord
compression/cauda equina or spinal epidural abscess. An x-ray of the lumbar spine was ordered in triage. Will follow. Pain appears purely muscular in nature. Patient is requesting stronger pain medication than what she was taking
[id number]. We will provide 2 mg of IV morphine. Will also provide Toradol and lidocaine patches. Will reassess.
Update: Per nurse there was an issue with the patient's line x 2 and medications were not able to be administered. I reassessed patient at bedside and provided her x-ray report. Her symptoms appear muscular in nature. I offered patient additional
medication but she declined and is requesting discharge. She refused discharge paperwork and left prior to receiving this but verbal discharge instructions were given. The patient is welcome to return here for further evaluation at any point. She
is recommended to continue supportive measures, her home medications, and closely follow-up with her doctor as well as an orthopedic spine surgeon. All questions answered. Stable for discharge.
*Critical Care Note
Total Time (30-74mins, 75-104mins- exclusive of procedures): Not Applicable
ED Attending Note
-
Portions of this chart may have been created with voice recognition software.� Occasional wrong word or��sound alike� substitutions may have occurred due to the inherent limitations of voice recognition software.
Discharge Plan
Departure
Patient Disposition: Home (Routine Discharge)
Date of Disposition: 02/06/25
Time of Disposition: 17:12
Patient with high blood pressure during this ER visit?: Yes
Condition: Good
Covid-19: Not Applicable
Discharge Problem:
Back pain
Instructions: Low Back Pain (DC)
Prescriptions:
No Action
alprazolam 1 MG tablet
1 - 2 mg PO PRN PRN (Reason: sleep/anxiety)
montelukast 10 MG tablet
10 mg PO QPM
fluoxetine 20 MG capsule
20 mg PO HS
docusate sodium 100 MG capsule
100 mg PO HS
sennosides [senna] 1 TABLET tablet
2 tab PO HS
pantoprazole [Protonix] 20 MG tablet,delayed release (DR/EC)
40 mg PO DAILY
Prolia 60 MG/ML syringe
60 mg SQ [id number]
hydrocodone-acetaminophen 10-325 mg Tablet
1 tab PO Q4H PRN (Reason: pain)
fluoxetine 10 mg Capsule
10 mg PO DAILY
potassium chloride 10 mEq Capsule, Extended Release
10 meq PO DAILY@1800
folic acid 1 mg Tablet
3 mg PO DAILY
famotidine 20 mg Tablet
20 mg PO HS
ondansetron 4 mg tablet,disintegrating
4 mg PO Q8H PRN (Reason: nausea and vomiting) Qty: 7 0RF
sucralfate [Carafate] 1 gram tablet
1 g PO ACHS Qty: 40 0RF
Rx Instructions:
30min to 1 hour before meals and HS
ciprofloxacin HCl [Cipro] 500 mg tablet
500 mg PO BID Qty: 10 0RF
Referrals:
Cale Farah, DO [Family Provider] -
Marie Goodman DO [Active] - Follow up in 1 week
Interventions
Interventions:
*Risk Screen - Suicide Last Done: 02/06/25 14:00
*General Assessment Last Done: 02/06/25 14:00
*Neglect/Abuse Screening Last Done: 02/06/25 14:33
*ED COVID-19 Vaccine History Last Done: 02/06/25 14:00
*Nursing Disposition Last Done: 02/06/25 17:14
ED-Musculoskeletal Assessment Last Done: 02/06/25 15:05
Discharge Date and Time
Discharge Date/Time: 02/06/25 17:14
Print Language: BELIZEAN
[2025-02-06] MEDS: TORADOL 15 MG IV (15:03)
[2025-02-06] MEDS: MORPHINE SULFATE 2 MG IV (15:04)
[2025-02-06] MEDS: LIDOCAINE 4% PATCH 1 PATCH TOPICAL (15:04)
--- NOTE | 2025-02-06 17:12 | EDRN ---
PA spoke with pt as noted in pt care update; pt and spouse told him they were leaving and they ambulated out.
== END 2025-02-06 17:14 | disposition home or self-care (01) ==
LOC: EMR 13:54
PROVIDERS: EMERGENCY PHYSICIAN Emergency Medicine; FAMILY PHYSICIAN Family Medicine
DX: M54.50 Low back pain, unspecified (principal); J44.89 Other specified chronic obstructive pulmonary disease; K21.9 Gastro-esophageal reflux disease without esophagitis; F41.8 Other specified anxiety disorders; Q25.72 Congenital pulmonary arteriovenous malformation; M06.9 Rheumatoid arthritis, unspecified; Z82.49 Family history of ischemic heart disease and other diseases of the circulatory system; Z85.828 Personal history of other malignant neoplasm of skin; Z87.01 Personal history of pneumonia (recurrent); Z87.891 Personal history of nicotine dependence; Z90.49 Acquired absence of other specified parts of digestive tract; Z96.643 Presence of artificial hip joint, bilateral; Z96.659 Presence of unspecified artificial knee joint
CPT/HCPCS: 99283; 96374; 96375; 72110

== ENCOUNTER → 2025-02-20 13:42 | Outpatient (REF) | payer MEDICARE, OTHER, SELFPAY | LOC: WOUND 13:42 | PROVIDERS: ATTENDING PHYSICIAN Surgery; FAMILY PHYSICIAN Family Medicine | DX: T81.31XA Disruption of external operation (surgical) wound, not elsewhere classified, initial encounter (principal); L97.222 Non-pressure chronic ulcer of left calf with fat layer exposed; M06.9 Rheumatoid arthritis, unspecified; M06.00 Rheumatoid arthritis without rheumatoid factor, unspecified site; Z98.890 Other specified postprocedural states; Z85.828 Personal history of other malignant neoplasm of skin; Y83.8 Other surgical procedures as the cause of abnormal reaction of the patient, or of later complication, without mention of misadventure at the time of the procedure | CPT/HCPCS: 97597 ==

== ENCOUNTER → 2025-02-26 13:13 | Outpatient (REF) | payer MEDICARE, OTHER, SELFPAY | LOC: WOUND 13:13 | PROVIDERS: ATTENDING PHYSICIAN Surgery; FAMILY PHYSICIAN Family Medicine | DX: T81.31XA Disruption of external operation (surgical) wound, not elsewhere classified, initial encounter (principal); L97.222 Non-pressure chronic ulcer of left calf with fat layer exposed; M06.9 Rheumatoid arthritis, unspecified; M06.00 Rheumatoid arthritis without rheumatoid factor, unspecified site; Z85.828 Personal history of other malignant neoplasm of skin; Z98.890 Other specified postprocedural states; Y83.8 Other surgical procedures as the cause of abnormal reaction of the patient, or of later complication, without mention of misadventure at the time of the procedure | CPT/HCPCS: 99212 ==

== ENCOUNTER → 2025-03-12 14:33 | Outpatient (REF) | payer MEDICARE, OTHER, SELFPAY ==
[2025-03-12 15:38] LABS: Blood Urea Nitrogen 14 mg/dl (7-17); Calcium 9.5 mg/dl (8.4-10.2); Carbon Dioxide 32 mmol/L (22-30); Chloride 101 mmol/L (98-107); Glucose 104 mg/dl (70-99); Potassium 3.6 mmol/L (3.5-5.1); Sodium 140 mmol/L (135-145); eGFR > 60.00
== END ==
LOC: REG 14:33
PROVIDERS: ATTENDING PHYSICIAN Family Medicine
DX: Z85.820 Personal history of malignant melanoma of skin (principal); R42 Dizziness and giddiness; R51.9 Headache, unspecified
CPT/HCPCS: 36415; 80048

== ENCOUNTER → 2025-04-22 11:31 | Outpatient (REF) | payer MEDICARE, OTHER, SELFPAY ==
[2025-04-22 11:54] LABS: % Basophils 0.8 % (0-2); % Eosinophils 1.7 % (0-6); % Immature Granulocytes 0.2 % (0-0.5); % Lymphocytes 38.4 % (20.5-51.1); % Monocytes 9.6 % (1.7-9.3); % Neutrophils 49.3 % (42.2-75.2); Absolute Eosinophils 0.1 10^3/uL (0-0.7); Absolute Monocytes 0.5 10^3/uL (0.1-0.6); Absolute Neutrophils 2.6 10^3/uL (1.4-6.5); Hematocrit 40.7 % (37.0-47.0); Hemoglobin 14.2 g/dL (12.0-16.0); Mean Corp Hgb Conc. 34.9 g/dL (33.0-37.0); Mean Corpuscular Hgb 31.3 pg (27.0-31.0); Mean Corpuscular Volume 89.8 fL (81.0-99.0); Nucleated Red Blood Cells % 0 %; Platelet Count 229 10^3/uL (130-400); Red Blood Cell Count 4.53 10^6/uL (4.20-5.40); White Blood Cell Count 5.2 10^3/uL (4.8-10.8)
[2025-04-22 13:15] LABS: ALT (SGPT) 43 U/L (0-35); AST (SGOT) 32 U/L (14-36); Albumin 4.6 g/dl (3.5-5.0); Alkaline Phosphatase 44 U/L (38-126); Blood Urea Nitrogen 14 mg/dl (7-17); Calcium 9.4 mg/dl (8.4-10.2); Carbon Dioxide 28 mmol/L (22-30); Chloride 101 mmol/L (98-107); Glucose 116 mg/dl (70-99); Potassium 3.2 mmol/L (3.5-5.1); Sodium 138 mmol/L (135-145); Total Bilirubin 0.5 mg/dl (0.2-1.3); Total Protein 7.8 g/dl (6.3-8.2); eGFR > 60.00
[2025-04-24 11:12] LABS: Quantiferon Mitogen minus NIL 9.95 IU/mL; Quantiferon NIL 0.05 IU/mL; Quantiferon Plus TB1 minus NIL 0.01 IU/mL (<=0.34); Quantiferon Plus TB2 minus NIL 0.01 IU/mL (<=0.34); Quantiferon TB Gold Plus Negative (Negative)
== END ==
LOC: REG 11:31
PROVIDERS: ATTENDING PHYSICIAN Physician Assistant; FAMILY PHYSICIAN Family Medicine
DX: M06.00 Rheumatoid arthritis without rheumatoid factor, unspecified site (principal); M15.4 Erosive (osteo)arthritis; Z22.7 Latent tuberculosis; Z79.899 Other long term (current) drug therapy
CPT/HCPCS: 36415; 80053; 85025; 86140; 86480

== ENCOUNTER → 2025-05-15 14:43 | Outpatient (REF) | payer MEDICARE, OTHER, SELFPAY | LOC: HWRAD 14:43 | PROVIDERS: ATTENDING PHYSICIAN Specialist/Technologist Athletic Trainer; FAMILY PHYSICIAN Family Medicine; REFERRING PHYSICIAN Specialist | DX: S76.012A Strain of muscle, fascia and tendon of left hip, initial encounter (principal) | CPT/HCPCS: 73502 ==

== ENCOUNTER → 2025-07-09 13:08 | Outpatient (REF) | payer MEDICARE, OTHER, SELFPAY ==
[2025-07-09 16:08] LABS: Hematocrit 43.0 % (37.0-47.0); Hemoglobin 14.3 g/dL (12.0-16.0); Mean Corp Hgb Conc. 33.3 g/dL (33.0-37.0); Mean Corpuscular Volume 92.1 fL (81.0-99.0); Nucleated Red Blood Cells % 0 %; Platelet Count 246 10^3/uL (130-400); Red Cell Dist. Width 12.3 % (11.5-14.5)
[2025-07-09 16:13] LABS: Albumin 4.6 g/dl (3.5-5.0); Carbon Dioxide 31 mmol/L (22-30); Total Protein 8.0 g/dl (6.3-8.2)
[2025-07-09 16:16] LABS: C-Reactive Protein < 5.00 mg/L (0.0-10.00)
[2025-07-09 16:22] LABS: ALT (SGPT) 43 U/L (0-35); AST (SGOT) 31 U/L (14-36); Alkaline Phosphatase 45 U/L (38-126); Blood Urea Nitrogen 14 mg/dl (7-17); Calcium 10.0 mg/dl (8.4-10.2); Chloride 101 mmol/L (98-107); Glucose 90 mg/dl (70-99); Potassium 4.1 mmol/L (3.5-5.1); Sodium 139 mmol/L (135-145); eGFR > 60.00
== END ==
LOC: HWLAB 13:08
PROVIDERS: ATTENDING PHYSICIAN Internal Medicine Rheumatology; FAMILY PHYSICIAN Family Medicine
DX: L40.50 Arthropathic psoriasis, unspecified (principal); M06.00 Rheumatoid arthritis without rheumatoid factor, unspecified site; M15.4 Erosive (osteo)arthritis; Z79.899 Other long term (current) drug therapy
CPT/HCPCS: 36415; 80053; 85025; 86140

== ENCOUNTER 2025-07-23 21:34 | Emergency (ER) | payer MEDICARE, OTHER, SELFPAY ==
[2025-07-23 21:38] VITALS: BP 134/67
[2025-07-24] MEDS: DILAUDID 2 MG PO ×2 (00:37→02:19)
[2025-07-24] MEDS: LYRICA 75 MG PO (00:37)
--- NOTE | 2025-07-24 02:09 | ED.GENMED ---
History of Present Illness
General
Chief Complaint: Post Operative Problem(s)
Source: patient
Exam Limitations: none
Time Seen by Provider: 07/24/25 00:16
Nursing documentation reviewed up to this point in time: agreed with
History of Present Illness
History of Present Illness:
69-year-old female presenting to the emergency department today with back pain. Had surgery 3 days ago spoke with her surgeon who prescribed her Dilaudid as well as Lyrica but unable to get the prescription thus she came to the ER to get medication
here. Denies any additional concerns specifically otherwise.
Past History
Past History
ED Past Medical History: Asthma, Cancer (Skin CA), GERD, Psychiatric (Anxiety, Depression) and Other (Chronic neck/back pain, diverticulitis, migraines, pulmonary AVM, rheumatoid arthritis, PNA, C-diff, )
ED Past Surgical History: Appendectomy, Gynecological, Orthopedic (L4-L5 Laminectomy, Right Bunionectomy, L and R shoulder repair, L and R THR, Right knee surgery, Right hand surgery, ) and Other (Rhizotomy neck and back, Cataracts, Deviated septum,
Detached retina, ); Negative Cardiac
Social History
Tobacco: Former smoker
Alcohol: Occasional
Drug: None
Personal:
Living: with family
Employment: Employed
Family History
Family History: Hypertension
Review of Systems
Review of Systems
Allergies reviewed?: Yes
All Other Systems: ROS reviewed and negative except as documented in HPI and ROS
Phy Exam
Physical Exam
Physical Exam:
GENERAL: Alert , in no apparent distress
EYE: pupils equal and reactive
NECK: Supple, no significant adenopathy.
ENT: o/p clr, mmm.
CARDIAC: Regular rate and rhythm .
LUNGS: Clear breath sounds bilaterally, no acute respiratory distress, no wheezes/rales/rhonchi
ABDOMEN: Soft, without focal tenderness, no r/g, no cvat
NEUROLOGICAL: Alert and oriented, no focal neuro deficits
SKIN: Warm and dry, skin intact.
MUSCULOSKELETAL: Surgical incisions to the back nacho in place no significant redness warmth no tenderness, no edema, well perfused.
PSYCH: Normal and appropriate interaction.
Course
Orders/Labs/Results
Orders:
Orders
07/24/25 00:30
HYDROmorphone [Dilaudid] 2 mg PO NOW STA
Pregabalin [Lyrica] 75 mg PO NOW STA
07/24/25 02:04
HYDROmorphone [Dilaudid] 2 mg PO NOW STA
Vital Signs
Initial and Last Documented VS:
Initial Vital Signs
Temp Pulse Resp BP Pulse Ox
99.0 F 74 18 134/67 95
07/23/25 21:38 07/23/25 21:38 07/23/25 21:38 07/23/25 21:38 07/23/25 21:38
Last Documented Vital Signs
Temp Pulse Resp BP Pulse Ox
99.0 F 74 18 134/67 95
07/23/25 21:38 07/23/25 21:38 07/23/25 21:38 07/23/25 21:38 07/23/25 21:38
MDM/Problems Addressed
MDM/Problems Addressed:
69-year-old female presenting to the emergency department today with concerns of back pain a few days after her back surgery. She spoke to her surgeon about this who recommended medications and reassess at his office. She was unable to get the
prescribed medications thus came to the ER for medication management. She was given the prescribed medications and had significant improvement of symptoms. No neurologic symptoms no fevers advised for close follow-up with the back doctor. Return
precautions given.
*Pulse Oximetry
SaO2: 95
Oxygen Mode of Delivery: Room air
Patient hypoxic: no (95)
*Critical Care Note
Total Time (30-74mins, 75-104mins- exclusive of procedures): Not Applicable
ED Attending Note
-
Portions of this chart may have been created with voice recognition software.� Occasional wrong word or��sound alike� substitutions may have occurred due to the inherent limitations of voice recognition software.
Discharge Plan
Departure
Patient Disposition: Home (Routine Discharge)
Date of Disposition: 07/24/25
Time of Disposition: 02:09
Patient with high blood pressure during this ER visit?: No
Condition: Good
Covid-19: Not Applicable
Discharge Problem:
Back pain
Instructions: Back Pain
Prescriptions:
No Action
alprazolam 1 MG tablet
1 - 2 mg PO PRN PRN (Reason: sleep/anxiety)
montelukast 10 MG tablet
10 mg PO QPM
fluoxetine 20 MG capsule
20 mg PO HS
docusate sodium 100 MG capsule
100 mg PO HS
sennosides [senna] 1 TABLET tablet
2 tab PO HS
pantoprazole [Protonix] 20 MG tablet,delayed release (DR/EC)
40 mg PO DAILY
Prolia 60 MG/ML syringe
60 mg SQ [id number]
hydrocodone-acetaminophen 10-325 mg Tablet
1 tab PO Q4H PRN (Reason: pain)
fluoxetine 10 mg Capsule
10 mg PO DAILY
potassium chloride 10 mEq Capsule, Extended Release
10 meq PO DAILY@1800
folic acid 1 mg Tablet
3 mg PO DAILY
famotidine 20 mg Tablet
20 mg PO HS
ondansetron 4 mg tablet,disintegrating
4 mg PO Q8H PRN (Reason: nausea and vomiting) Qty: 7 0RF
sucralfate [Carafate] 1 gram tablet
1 g PO ACHS Qty: 40 0RF
Rx Instructions:
30min to 1 hour before meals and HS
ciprofloxacin HCl [Cipro] 500 mg tablet
500 mg PO BID Qty: 10 0RF
Referrals:
Gaibler,Cale C., DO [Family Provider, Family Practice]
Activity Restrictions/Additional Instructions:
You came to the emergency department today with concerns of back pain. Please take your prescribed medications at home and return for any worsening, new or concerning symptoms. Please call your doctor today for further management.
Discharge Date and Time
Print Language: KAZAKH
== END 2025-07-24 02:46 | disposition home or self-care (01) ==
LOC: EMR 21:34
PROVIDERS: EMERGENCY PHYSICIAN Student in an Organized Health Care Education/Training Program; FAMILY PHYSICIAN Family Medicine
DX: M54.9 Dorsalgia, unspecified (principal); J45.909 Unspecified asthma, uncomplicated; K21.9 Gastro-esophageal reflux disease without esophagitis; M06.9 Rheumatoid arthritis, unspecified; M54.2 Cervicalgia; G89.29 Other chronic pain; F41.9 Anxiety disorder, unspecified; F32.A Depression, unspecified; Q25.72 Congenital pulmonary arteriovenous malformation; Z87.891 Personal history of nicotine dependence; Z85.828 Personal history of other malignant neoplasm of skin; Z86.19 Personal history of other infectious and parasitic diseases
CPT/HCPCS: 99283

== ENCOUNTER → 2025-10-07 10:26 | Outpatient (REF) | payer MEDICARE, OTHER, SELFPAY | LOC: WDC 10:26 | PROVIDERS: ATTENDING PHYSICIAN Obstetrics & Gynecology | DX: N64.4 Mastodynia (principal) | CPT/HCPCS: 76642; 77062; 77066 ==